=== PATIENT | female | born 1990 | race Caucasian/White ===

== ENCOUNTER 2017-08-05 10:34 | Emergency (ER) | payer SELFPAY ==
[2017-08-05] MEDS ORDERED: Ibuprofen 800 MG TAB ONE (13:23)
--- NOTE | 2017-08-05 14:34 | RAD ---
3 VIEWS RIGHT LITTLE FINGER: Date: 08/05/17 COMPARISON: None. HISTORY: Fifth finger pain. FINDINGS: Three views of the right small finger show a fracture through the mid portion of the distal phalanx of the finger. This does not extend to the articular surface. IMPRESSION: Distal phalanx fracture. POS: [facility]
== END 2017-08-05 13:29 | disposition home or self-care (01) ==
LOC: ERS 10:34
DX: S62.636A Displaced fracture of distal phalanx of right little finger, initial encounter for closed fracture (principal); Z87.891 Personal history of nicotine dependence; X58.XXXA Exposure to other specified factors, initial encounter

== ENCOUNTER 2017-09-08 07:45 | Emergency (ER) | payer SELFPAY | END 2017-09-08 08:47 | disposition left against medical advice (07) | LOC: ERS 07:45 | DX: Z53.21 Procedure and treatment not carried out due to patient leaving prior to being seen by health care provider (principal) ==

== ENCOUNTER 2017-10-06 05:16 | Emergency (ER) | payer SELFPAY ==
[2017-10-06 06:52] LABS: Hematocrit 31.7 % (36.0-47.0); Mean Platelet Volume 9.7 fL (7.4-10.4); Red Blood Cell (RBC) Count 4.63 mill/uL (4.20-5.40); White Blood Cell (WBC) Count 5.8 thou/uL (4.8-10.8)
[2017-10-06 06:54] LABS: Acetaminophen Less than 6.0 mcg/mL (10.0-30.0); Salicylate Less than 8.0 mg/dL (15.0-30.0)
[2017-10-06 06:56] LABS: ALT (SGPT) 15 U/L (8-55); AST (SGOT) 21 U/L (5-34); Alkaline Phosphatase 73 U/L (40-150); Anion Gap 15 mmol/L (10-20); BUN (Urea Nitrogen) 6 mg/dL (7.0-18.7); Bilirubin, Total 0.5 mg/dL (0.2-1.2); CK (CPK) 64 U/L (29-168); Calc. Creatinine Clearance 0 mL/min (70-130); Calcium 9.9 mg/dL (7.8-10.44); Carbon Dioxide 26 mmol/L (22-29); Chloride 103 mmol/L (98-107); Estimated GFR-MDRD Greater than 90; Globulin 3.9 g/dL (2.4-3.5); Protein, Total 8.3 g/dL (6.0-8.3)
[2017-10-06 07:27] LABS: Band 1 % (5-11); Hypochromia MODERATE=16-30 cells (100X) (0-5/hpf); Microcytosis MODERATE=15-30 cells (100X) (0-5/hpf); Neutrophil 42 % (42-75); Polychromasia SLIGHT = 2-3 cells (100X) (0-2/hpf); Target Cells SLIGHT = 2-5 cells (100X) (0-1/hpf)
[2017-10-06 07:52] LABS: Bilirubin Negative (Negative); Blood, Urine Moderate (Negative); Glucose, Urine (Dipstick) Negative (Negative); Ketone, Urine Negative (Negative); Nitrite Negative (Negative); Protein, Urine (Dipstick) Trace mg/dL (Neg-Trace); Urobilinogen 0.2 mg/dL (0.2-1.0)
[2017-10-06 07:54] LABS: Bacteria/HPF 1+ HPF (None Seen); Hyaline Casts/LPF 0-3 HYALINE CAST LPF (0-3 Hyaline); RBC/HPF 0-3 HPF (0-3)
[2017-10-06 08:02] LABS: Amphetamine Detected (NotDetected); Methadone Not Detected (NotDetected); Methamphetamine Detected (NotDetected)
[2017-10-06 08:08] LABS: Yeast-All Forms None Seen HPF (None Seen)
[2017-10-06] MEDS ORDERED: Ibuprofen 800 MG TAB ONE (20:27)
--- NOTE | 2017-10-06 22:30 | RAD ---
RADIOGRAPH CHEST 1 VIEW: 10/06/17 HISTORY: 27-year-old female with acute chest pain. FINDINGS: There are no air space densities, pulmonary edema, pneumothorax, or cardiomegaly. The lateral costop hrenic angles are sharp. IMPRESSION: No acute cardiopulmonary findings. mik [] POS: [facility]
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
== END 2017-10-06 10:58 | disposition home or self-care (01) ==
LOC: ERS 05:16
DX: F19.959 Other psychoactive substance use, unspecified with psychoactive substance-induced psychotic disorder, unspecified (principal); F17.210 Nicotine dependence, cigarettes, uncomplicated; Z71.6 Tobacco abuse counseling
CPT/HCPCS: 36415; 36416; 70450; 71010; 80053; 80306; 80307; 81003; 81015; 81025; 82550; 84443; 85025; 93005; 99406

== ENCOUNTER 2017-12-08 12:38 | Emergency (ER) | payer SELFPAY ==
[2017-12-08 16:16] LABS: Bilirubin Negative (Negative); Blood, Urine Negative (Negative); Clarity CLEAR (Clear); Glucose, Urine (Dipstick) Negative (Negative); Leukocyte Trace (Negative); Nitrite Negative (Negative); Protein, Urine (Dipstick) Negative (Neg-Trace); Specific Gravity, Urine 1.027 (1.002-1.036); Urobilinogen 0.2 mg/dL (0.2-1.0)
[2017-12-08 16:19] LABS: Bacteria/HPF None Seen HPF (None Seen); Hyaline Casts/LPF 4-6 HYALINE CAST LPF (0-3 Hyaline); Pathc Cast-AUWi Flag 1.35 (0-2.49); RBC/HPF 0-3 HPF (0-3)
[2017-12-08 16:22] LABS: Pregnancy Test - Urine (BHCG) Negative (Negative); Pregu Control Background? CLEAR/WHITE (CLR/WHITE); Pregu Control Bar Appear? YES (CONTROL BAR); Specific Gravity 1.027 (1.002-1.036)
[2017-12-09 21:46] LABS: Chlamydia by PCR Not Detected (NotDetected); GC by PCR Not Detected (NotDetected)
== END 2017-12-08 16:29 | disposition home or self-care (01) ==
LOC: ERS 12:38
DX: N76.0 Acute vaginitis (principal); F41.9 Anxiety disorder, unspecified; F17.210 Nicotine dependence, cigarettes, uncomplicated
CPT/HCPCS: 81003; 81015; 81025; 87480; 87491; 87510; 87591; 87660; 99283

== ENCOUNTER 2018-01-05 09:05 | Emergency (ER) | payer SELFPAY ==
[2018-01-05 09:52] LABS: #Basophils 0.1 thou/uL (0.0-0.2); #Eosinphils 0.1 thou/uL (0.0-0.7); #Lymphocytes 2.4 thou/uL (1.20-3.40); #Monocytes 0.4 thou/uL (0.11-0.59); #Neutrophils 3.2 thou/uL (1.40-6.50); %Basophils 1.2 % (0.0-1.0); %Eosinophils 2.4 % (0.0-10.0); %Lymphocytes 38.7 % (21.0-51.0); %Monocytes 5.7 % (0.0-10.0); %Neutrophils 51.9 % (42.0-75.0); Hemoglobin 9.5 g/dL (12.0-16.0); Mean Corpuscular HGB CONC 29.4 g/dL (32.0-36.0); Mean Corpuscular Hemoglobin 19.7 pg (27.0-31.0); Mean Corpuscular Volume 66.8 fl (81.0-99.0); Mean Platelet Volume 10.1 fL (7.4-10.4); Platelet Count 413 thou/uL (130-400); RBC Distribution Width 18.1 % (11.5-14.5); Red Blood Cell (RBC) Count 4.82 mill/uL (4.20-5.40); White Blood Cell (WBC) Count 6.1 thou/uL (4.8-10.8)
[2018-01-05 10:02] LABS: ALT (SGPT) 17 U/L (8-55); AST (SGOT) 25 U/L (5-34); Albumin 4.4 g/dL (3.5-5.0); Alkaline Phosphatase 74 U/L (40-150); Anion Gap 11 mmol/L (10-20); BUN (Urea Nitrogen) 13 mg/dL (7.0-18.7); Bilirubin, Total 0.5 mg/dL (0.2-1.2); Calc. Creatinine Clearance 0 mL/min (70-130); Calcium 9.1 mg/dL (7.8-10.44); Carbon Dioxide 25 mmol/L (22-29); Chloride 105 mmol/L (98-107); Estimated GFR-MDRD Greater than 90; Globulin 3.6 g/dL (2.4-3.5); Potassium 3.4 mmol/L (3.5-5.1); Sodium 138 mmol/L (136-145)
[2018-01-05 10:04] LABS: Glucose 56 mg/dL (70-105)
[2018-01-05 10:10] LABS: Band 4 % (5-11); Hypochromia MODERATE=16-30 cells (100X) (0-5/hpf); Lymphocytes 34 % (21-51); MDiff Complete? YES; Microcytosis MODERATE=15-30 cells (100X) (0-5/hpf); Monocytes 7 % (0-10); Neutrophil 55 % (42-75); Ovalocytes SLIGHT = 2-5 cells (100X) (0-1/hpf); PLT Morphology Comment Appears Increased; Polychromasia SLIGHT = 2-3 cells (100X) (0-2/hpf); Reflex for Review?? YES
[2018-01-05 10:22] LABS: Bilirubin Negative (Negative); Blood, Urine Negative (Negative); Clarity CLEAR (Clear); Glucose, Urine (Dipstick) Negative (Negative); Leukocyte Small (Negative); Nitrite Negative (Negative); Protein, Urine (Dipstick) Negative (Neg-Trace); Specific Gravity, Urine 1.018 (1.002-1.036)
[2018-01-05 10:24] LABS: Bacteria/HPF 1+ HPF (None Seen); Hyaline Casts/LPF 0-3 HYALINE CAST LPF (0-3 Hyaline); RBC/HPF 0-3 HPF (0-3); Squamous Epithelial 0-3 HPF (0-3)
[2018-01-05 10:29] LABS: Pregnancy Test - Urine (BHCG) Negative (Negative); Pregu Control Background? CLEAR/WHITE (CLR/WHITE); Pregu Control Bar Appear? YES (CONTROL BAR); Specific Gravity 1.018 (1.002-1.036)
[2018-01-05] MEDS ORDERED: Fluconazole 100 MG TAB PO SCH (11:30)
[2018-01-06 09:52] LABS: Chlamydia by PCR Not Detected (NotDetected); GC by PCR Not Detected (NotDetected)
== END 2018-01-05 12:19 | disposition home or self-care (01) ==
LOC: ERS 09:05
DX: B37.3 Candidiasis of vulva and vagina (principal); N39.0 Urinary tract infection, site not specified; F41.9 Anxiety disorder, unspecified; F17.210 Nicotine dependence, cigarettes, uncomplicated; Z71.6 Tobacco abuse counseling
CPT/HCPCS: 36415; 80053; 81003; 81015; 81025; 85025; 85060; 87480; 87491; 87510; 87591; 87660; 99406

== ENCOUNTER 2018-04-02 01:57 | Observation (INO) | payer MEDICAID, SELFPAY ==
[2018-04-02 02:54] LABS: Bilirubin Small (Negative); Blood, Urine Negative (Negative); Clarity CLEAR (Clear); Glucose, Urine (Dipstick) Negative (Negative); Leukocyte Small (Negative); Nitrite Negative (Negative); Protein, Urine (Dipstick) 30 mg/dL (Neg-Trace); Specific Gravity, Urine 1.039 (1.002-1.036)
[2018-04-02 02:57] LABS: Bacteria/HPF None Seen HPF (None Seen); Hyaline Casts/LPF 7-10 HYALINE CAST LPF (0-3 Hyaline); RBC/HPF 0-3 HPF (0-3)
[2018-04-02 03:03] LABS: Pregnancy Test - Urine (BHCG) Negative (Negative); Pregu Control Background? CLEAR/WHITE (CLR/WHITE); Pregu Control Bar Appear? YES (CONTROL BAR); Specific Gravity 1.039 (1.002-1.036)
[2018-04-02 03:07] LABS: Amphetamine Detected (NotDetected); Barbiturates Screen Not Detected (NotDetected); Benzodiazepine Screen Detected (NotDetected); Cocaine Metabolite Screen Not Detected (NotDetected); Medtox Control Line Valid? VALID (VALID); Medtox Reader # READER 4; Methadone Not Detected (NotDetected); Methamphetamine Detected (NotDetected); Opiate Screen Not Detected (NotDetected); Oxycodone Screen Not Detected (NotDetected); Phencyclidine (PCP) Not Detected (NotDetected); THC/Cannabinoid Screen Detected (NotDetected); Tricyclic Screen Not Detected (NotDetected)
[2018-04-02 03:08] LABS: Renal Epithelial None Seen HPF (0-3); Transitional Epithelial NONE SEEN HPF (0-3)
[2018-04-02 03:11] LABS: Mean Corpuscular HGB CONC 30.1 g/dL (32.0-36.0); Mean Corpuscular Hemoglobin 19.6 pg (27.0-31.0); Mean Corpuscular Volume 65.1 fl (81.0-99.0); Platelet Count 482 thou/uL (130-400); RBC Distribution Width 19.6 % (11.5-14.5); Red Blood Cell (RBC) Count 4.59 mill/uL (4.20-5.40); White Blood Cell (WBC) Count 8.1 thou/uL (4.8-10.8)
[2018-04-02 03:19] LABS: ALT (SGPT) 16 U/L (8-55); AST (SGOT) 25 U/L (5-34); Acetaminophen Less than 6.0 mcg/mL (10.0-30.0); Albumin 4.3 g/dL (3.5-5.0); Alcohol Less than 10 mg/dL (Less than 10); Alkaline Phosphatase 69 U/L (40-150); Anion Gap 16 mmol/L (10-20); BUN (Urea Nitrogen) 17 mg/dL (7.0-18.7); Bilirubin, Total 0.5 mg/dL (0.2-1.2); Calc. Creatinine Clearance 0 mL/min (70-130); Calcium 9.3 mg/dL (7.8-10.44); Carbon Dioxide 21 mmol/L (22-29); Chloride 107 mmol/L (98-107); Estimated GFR-MDRD 82; Globulin 3.3 g/dL (2.4-3.5); Glucose 91 mg/dL (70-105); Protein, Total 7.6 g/dL (6.0-8.3); Salicylate Less than 8.0 mg/dL (15.0-30.0); Sodium 141 mmol/L (136-145)
[2018-04-02 03:29] LABS: #Basophils 0.1 thou/uL (0.0-0.2); #Eosinphils 0.1 thou/uL (0.0-0.7); #Lymphocytes 3.5 thou/uL (1.20-3.40); #Monocytes 0.8 thou/uL (0.11-0.59); #Neutrophils 3.7 thou/uL (1.40-6.50); %Basophils 0.8 % (0.0-1.0); %Eosinophils 0.7 % (0.0-10.0); %Lymphocytes 42.8 % (21.0-51.0); %Monocytes 9.8 % (0.0-10.0); Anisocytosis SLIGHT = 6-15 cells (100X) (0-5/hpf); MDiff Complete? YES; Microcytosis SLIGHT = 6-15 cells (100X) (0-5/hpf)
[2018-04-02] MEDS ORDERED: Ziprasidone 20 MG VIAL ONE ×2 (07:42→07:44)
--- NOTE | 2018-04-02 08:41 | CT ---
CT HEAD NONCONTRAST DATE: 04/02/18 HISTORY: Altered mental status. COMPARISON: 10/07/17. FINDINGS: There is no evidence of acute intracranial hemorrhage or infarct. The ventricles appear normal in siz e, shape, and position. There is no mass effect or shift of midline structures. Visualized paranasal sinuses remain well aerated. IMPRESSION: No acute intracranial abnormalities are demonstrated on noncontrast CT head. POS: [facility]
[2018-04-02] MEDS ORDERED: Acetaminophen 325 MG TAB PO PRN (10:01)
[2018-04-02] MEDS ORDERED: Bisacodyl 5 MG TAB PO PRN (10:01)
--- NOTE | 2018-04-02 10:43 | HP ---
PRIMARY CARE PHYSICIAN: None. CHIEF COMPLAINT: Anxiety. HISTORY OF PRESENT ILLNESS: Ms. Graham is a 27-year-old lady who was seen at [facility] on 04/02/2018. She is nonverbal at this time, not providing any history or review of systems. Collateral history wa s obtained from review of medical record as well as discussion with the emergency room physician. Ms. Graham presented to [facility] around 11:30 p.m. last night for anxiety. She was advised to go to the emergency room. She was accompanied by a friend when she initially present ed to the emergency room. Friend reports that patient had off and on anxiety over the last 3 days. She woke up yesterday morning with severe anxiety that did not stop. She therefore went to the [facility]. REVIEW OF SYSTEMS: Unable to complete secondary to patient's nonverbal status. PAST MEDICAL HISTORY: Ovarian cysts. PAST SURGICAL HISTORY: Abdominal surgery as a baby and section x1. PSYCHIATRIC HISTORY: Anxiety and depression. SOCIAL HISTORY: Unable to obtain from the patient, but in the past used marijuana, amphetamines and tobacco. ALLERGIES: No known drug allergies. CURRENT MEDICATIONS: Unable to obtain. FAMILY HISTORY: Unable to obtain. PHYSICAL EXAMINATION: GENERAL: Ms. Graham is awake and alert, not in acute distress. VITAL SIGNS: Blood pressure is 114/69, pulse is 64. She is breathing at rate of 22 and saturating 1 00% on room air. She is afebrile. EYES: No scleral icterus. No conjunctival pallor. ENT: Moist mucosal membranes, no oropharyngeal erythema or exudates. NECK: Supple, nontender, trachea is midline. RESPIRATORY: Accessory muscles of breathing are not active. Chest wall movements are symmetric bila terally. LUNGS: Clear to auscultation without wheeze, rhonchi or crepitations. CARDIOVASCULAR: S1 and S2 are heard, regular. Peripheral pulses palpable. No carotid bruit, no per icardial rub. ABDOMEN: Soft, nontender, bowel sounds heard, no hepatomegaly, no splenomegaly. NEUROLOGIC: Full neurologic examination not possible secondary to the patient's noncooperation. The re is no facial droop. Deep tendon reflexes are 2+, plantar reflexes downgoing bilaterally. MUSCULOSKELETAL: The patient is moving all 4 extremities. LYMPHATIC: No cervical lymphadenopathy. SKIN: No rashes or subcutaneous nodules. PSYCHIATRIC: Normal mood, normal affect, unable to assess orientation to person, place or time. LABORATORY DATA: Ms. Graham labs and investigations were reviewed. She had a noncontrast CT scan of the brain, which did not show any acute intracranial abnormality. She has normal white count, micro cytic anemia with hemoglobin of 9, last known hemoglobin was 9.5 on 01/05/2018, elevated platelet cou nt of 482,000, last known platelet count was 413,000 on 01/05/2018, normal sodium, decreased potassiu m of 3.0, decreased carbon dioxide of 21, otherwise normal comprehensive metabolic profile, normal TS H, negative urine test, urinalysis that is positive for ketones and small amount of bilirub in and small amount of leukocyte esterase and urine drug screen that is positive for amphetamines, me thamphetamines, benzodiazepines and cannabinoids. ASSESSMENT AND PLAN: Ms. Graham is a 27-year-old lady who was seen at [facility] on 04/02/2018. Her problem list includes: 1. Hypokalemia: Potassium will be replaced. 2. Anemia: Chronic. She will need workup as outpatient. 3. 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 She will likely need workup as outpatient . 4. Anxiety: [facility] attempted to speak to the patient, but they could not because the patient was not speaking to them. She will be cleared for disposition as per [facility] recommendations once they are able to speak to her. LEVEL OF RISK: Moderate. LEVEL OF COMPLEXITY: Moderate.
[2018-04-02] MEDS ORDERED: Nicotine 14 MG PATCH TD SCH (11:00)
[2018-04-02 14:39] VITALS: BMI 20.2
[2018-04-02] MEDS ORDERED: Haloperidol Lactate 5 MG/ML VIAL ONE (15:36)
[2018-04-02] MEDS ORDERED: Potassium Chloride 40 MEQ in Sodium Chloride 0.9% 250 ML 250 ML IVPB SCH (17:45)
[2018-04-02] MEDS: Potassium Chloride 20 MEQ TAB PO SCH (17:51)
[2018-04-03 08:55] LABS: Anion Gap 12 mmol/L (10-20); BUN (Urea Nitrogen) 5 mg/dL (7.0-18.7); Calc. Creatinine Clearance 92 mL/min (70-130); Calcium 8.6 mg/dL (7.8-10.44); Carbon Dioxide 23 mmol/L (22-29); Chloride 110 mmol/L (98-107); Estimated GFR-MDRD Greater than 90; Glucose 92 mg/dL (70-105); Potassium 3.5 mmol/L (3.5-5.1); Sodium 141 mmol/L (136-145)
[2018-04-03 09:16] LABS: #Basophils 0.1 thou/uL (0.0-0.2); #Eosinphils 0.1 thou/uL (0.0-0.7); #Lymphocytes 2.3 thou/uL (1.20-3.40); #Monocytes 0.5 thou/uL (0.11-0.59); #Neutrophils 1.8 thou/uL (1.40-6.50); %Basophils 1.4 % (0.0-1.0); %Eosinophils 1.1 % (0.0-10.0); %Lymphocytes 49.5 % (21.0-51.0); %Monocytes 9.5 % (0.0-10.0); %Neutrophils 38.6 % (42.0-75.0); Hemoglobin 8.5 g/dL (12.0-16.0); Hypochromia MODERATE=16-30 cells (100X) (0-5/hpf); MDiff Complete? YES; Mean Corpuscular HGB CONC 29.9 g/dL (32.0-36.0); Mean Corpuscular Volume 67.1 fl (81.0-99.0); Mean Platelet Volume 10.3 fL (7.4-10.4); Microcytosis MODERATE=15-30 cells (100X) (0-5/hpf); Ovalocytes SLIGHT = 2-5 cells (100X) (0-1/hpf); PLT Morphology Comment Appears Adequate; Platelet Count 353 thou/uL (130-400); Polychromasia SLIGHT = 2-3 cells (100X) (0-2/hpf); RBC Distribution Width 19.4 % (11.5-14.5); Red Blood Cell (RBC) Count 4.22 mill/uL (4.20-5.40); Reflex for Review?? NO; White Blood Cell (WBC) Count 4.7 thou/uL (4.8-10.8)
[2018-04-03] MEDS: Haloperidol Lactate 5 MG/ML VIAL IM PRN ×2 (11:12→11:23)
[2018-04-03 11:52] VITALS: BP 125/77; TEMP 98.1
--- NOTE | 2018-04-04 03:15 | DIS ---
DATE OF ADMISSION: 04/02/2018 DATE OF DISCHARGE: 04/03/2018 CONDITION AT THE TIME OF DISCHARGE: Stable and improved. DISCHARGE DIAGNOSES: 1. Altered mental status, resolved. 2. Drug abuse. 3. Anxiety and depression. DISCHARGE MEDICATIONS: None. CONSULTATIONS: [facility] PRIMARY CARE PHYSICIAN: None. The patient is instructed to follow up with one of the free clinics, either [facility] or [email or web address]. HISTORY OF PRESENTING ILLNESS: Ms. Graham is a 27-year-old female with unknown past medical history, who presented to the emergency room for complaints of anxiety. She has initially presented to [facility] for complaints of anxiety, brought in by her friend, who referred her to [facility]. In the emergency room, her initial workup including a CT scan of the brain was unremarkable. She was found to be awake and alert, but not talking. All of her initial workup including CT scan of the brain and comprehensive metabolic profile and CBC was unremarkable. Her urine test wa s negative. Urinalysis showed ketones and bilirubin. Drug screen was positive for amphetamine, meth amphetamine, benzodiazepine and cannabinoids. She was found to have hypokalemia as well with a potas sium of 3. She was admitted for further evaluation and [facility] evaluation. Please see admission histor y and physical for further details. The patient did not talk at all to anyone while in the hospital, so getting any history from her was almost next to impossible. HOSPITAL COURSE: The patient remained the same throughout the rest of her hospitalization. She was hemodynamically stable and all of the workup was unremarkable. She was seen by [facility], but they also f maria m to get any response out of her. She could not complete the evaluation if she needed any psychi atric help or not. Eventually, she was given resources for outpatient followup with [facility] if necessar y. The potassium was replaced and was rechecked was within normal limit this morning. At this time, because there is no further medical need for her to stay in the hospital, she will be d ischarged under the care of the friend that she lives with. She was seen and examined this morning and has no acute distress. She is awake, alert, oriented x3. She would give answers to small questions, but then she started to have severe anxiety when asked mo re questions, so interview was stopped. PHYSICAL EXAMINATION: This morning include: VITAL SIGNS: Temperature 98.1, pulse of 86, respirations 18, saturating 100% on room air, blood pres sure 125/77. GENERAL: No acute distress, awake, alert, oriented x3. CHEST: Clear to auscultation bilaterally. CARDIOVASCULAR: Rate and rhythm is regular.
== END 2018-04-03 12:47 | disposition home or self-care (01) ==
LOC: ERS 01:57 → T4-A 14:30
PROVIDERS: ADMIT Internal Medicine; ATTEND Internal Medicine
DX: R41.82 Altered mental status, unspecified (principal); F41.9 Anxiety disorder, unspecified; F32.9 Major depressive disorder, single episode, unspecified; F19.10 Other psychoactive substance abuse, uncomplicated; E87.6 Hypokalemia; D64.9 Anemia, unspecified; D47.3 Essential (hemorrhagic) thrombocythemia; Z87.891 Personal history of nicotine dependence
CPT/HCPCS: 36415; 70450; 80048; 80053; 80306; 80307; 81003; 81015; 81025; 84443; 85025; 96360; 96361; 96365; 96366; 96372; 96375; G0378; J1630; J3480; J3486; J7050

== ENCOUNTER 2018-09-04 13:52 | Emergency (ER) | payer MEDICAID, SELFPAY ==
[2018-09-04 14:17] LABS: Bilirubin Negative (Negative); Blood, Urine Negative (Negative); Clarity CLEAR (Clear); Glucose, Urine (Dipstick) Negative (Negative); Leukocyte Small (Negative); Nitrite Negative (Negative); Protein, Urine (Dipstick) Negative (Neg-Trace); Specific Gravity, Urine 1.027 (1.002-1.036)
[2018-09-04 14:20] LABS: Bacteria/HPF None Seen HPF (None Seen); Hyaline Casts/LPF 0-3 HYALINE CAST LPF (0-3 Hyaline); Pathc Cast-AUWi Flag 0.43 (0-2.49); RBC/HPF 0-3 HPF (0-3)
[2018-09-04 14:21] LABS: Pregnancy Test - Urine (BHCG) Negative (Negative); Pregu Control Background? CLEAR/WHITE (CLR/WHITE); Pregu Control Bar Appear? YES (CONTROL BAR); Specific Gravity 1.027 (1.002-1.036)
[2018-09-04 14:32] LABS: #Basophils 0.1 thou/uL (0.0-0.2); #Eosinphils 0.1 thou/uL (0.0-0.7); #Lymphocytes 2.4 thou/uL (1.20-3.40); #Monocytes 0.5 thou/uL (0.11-0.59); %Basophils 1.1 % (0.0-1.0); %Eosinophils 0.8 % (0.0-10.0); %Lymphocytes 29.6 % (21.0-51.0); %Monocytes 6.5 % (0.0-10.0); %Neutrophils 62.1 % (42.0-75.0); Hemoglobin 11.5 g/dL (12.0-16.0); Mean Corpuscular HGB CONC 30.4 g/dL (32.0-36.0); Mean Corpuscular Hemoglobin 23.2 pg (27.0-31.0); Mean Corpuscular Volume 76.4 fL (78.0-98.0); Mean Platelet Volume 8.7 fL (7.4-10.4); Platelet Count 408 thou/uL (130-400); RBC Distribution Width 19.2 % (11.5-14.5); Red Blood Cell (RBC) Count 4.93 mill/uL (4.20-5.40)
[2018-09-04 14:53] LABS: ALT (SGPT) 21 U/L (8-55); AST (SGOT) 23 U/L (5-34); Alkaline Phosphatase 74 U/L (40-150); Anion Gap 10 mmol/L (10-20); BUN (Urea Nitrogen) 13 mg/dL (7.0-18.7); Bilirubin, Total 0.6 mg/dL (0.2-1.2); Calc. Creatinine Clearance 0 mL/min (70-130); Carbon Dioxide 26 mmol/L (22-29); Chloride 107 mmol/L (98-107); Estimated GFR-MDRD Greater than 90; Globulin 3.1 g/dL (2.4-3.5); Glucose 83 mg/dL (70-105); Lipase 51 U/L (8-78); Potassium 3.5 mmol/L (3.5-5.1); Protein, Total 7.1 g/dL (6.0-8.3); Sodium 139 mmol/L (136-145)
[2018-09-04] MEDS ORDERED: Azithromycin 250 MG TAB ONE (15:49)
[2018-09-04] MEDS ORDERED: cefTRIAXone\\ROCEPHIN 250 MG VIAL ONE (15:49)
[2018-09-04] MEDS ORDERED: Lidocaine 1% PF 5 ML VIAL ONE (15:49)
[2018-09-06 22:31] LABS: Chlamydia by PCR Not Detected (NotDetected); GC by PCR Not Detected (NotDetected)
== END 2018-09-04 16:11 | disposition home or self-care (01) ==
LOC: ERS 13:52
DX: N72 Inflammatory disease of cervix uteri (principal); F41.9 Anxiety disorder, unspecified; F17.210 Nicotine dependence, cigarettes, uncomplicated
CPT/HCPCS: 36415; 80053; 81003; 81015; 81025; 83690; 85025; 87480; 87491; 87510; 87591; 87660; 96372; J0696; J2001